=== PATIENT | female | born 1950 | race Caucasian/White ===

== ENCOUNTER 2020-03-18 09:58 | Outpatient (CLI) | payer MEDICARE, SELFPAY ==
[2020-03-18 11:43] LABS: Partial Thromboplastin Time 29.8 SECONDS (22.3-36.8)
[2020-03-18 11:44] LABS: Urine Cotinine NEGATIVE
== END 2020-03-18 09:59 | disposition home or self-care (01) ==
PROVIDERS: PCP Pediatrics; Visit Provider Orthopaedic Surgery
DX: M17.11 Unilateral primary osteoarthritis, right knee (principal); Z01.812 Encounter for preprocedural laboratory examination
CPT/HCPCS: 80307; 83036; 85730; 86850; 86900; 86901; 87081

== ENCOUNTER 2020-03-26 09:34 | Outpatient (CLI) | payer MEDICARE, SELFPAY ==
--- NOTE | 2020-03-26 | EST_ITS ---
Patient Info Name: Laura Elizondo Age: 69 years : 1950 Gender: Female Ht: 63 in Wt: 183 lbs BSA: 1.95 m2 Exam Date: 03/26/2020 12:02 PM Exam Location: [facility] Stress Patient Status: Outpatient Admit Date: 03/26/2020 Staff Ordering Physician: PHYSICIAN NOT ON STAFF, NONSTAFF Attending Provider: PHYSICIAN NOT ON STAFF, NONSTAFF Exercise Technologist: Cassandra Sykes RDCS Exercise Physician: Rogerio Batista DO Exam Type: CA stress garth w NM Study Info Indications R55 - Syncope and collapse Z01.818 - Encounter for other preprocedural examination A regadenoson stress test was performed. Summary 1. 1. Abnormal lexiscan stress test for ischemic ST changes by ECG criteria. 2. 2. Baseline hypertension. 3. 3. Nuclear scan to follow and will be reported separately. Please correlate with it. 4. 4. Patient informed of the above results. Protocol: Lexiscan Stress ECG Details Stage: REST Duration (min): 8 min : 14 sec HR (bpm): 71 SBP (mmHg): 154 DBP (mmHg): 79 Stage: REST Duration (min): 9 min : 59 sec HR (bpm): 72 SBP (mmHg): 154 DBP (mmHg): 79 Stage: STAGE 1 Duration (min): 1 min : 0 sec HR (bpm): 94 SBP (mmHg): 157 DBP (mmHg): 78 Stage: RECOVERY Duration (min): 1 min : 0 sec HR (bpm): 98 SBP (mmHg): 154 DBP (mmHg): 77 Stage: RECOVERY Duration (min): 2 min : 0 sec HR (bpm): 95 SBP (mmHg): 154 DBP (mmHg): 77 Stage: RECOVERY Duration (min): 3 min : 0 sec HR (bpm): 90 SBP (mmHg): 157 DBP (mmHg): 82 Stage: RECOVERY Duration (min): 4 min : 0 sec HR (bpm): 85 SBP (mmHg): 157 DBP (mmHg): 82 Stage: RECOVERY Duration (min): 4 min : 49 sec HR (bpm): 85 SBP (mmHg): 148 DBP (mmHg): 81 Rest HR: 72 bpm Peak HR: 98 bpm Rest Sys BP: 154 mmHg Peak Sys BP: 157 mmHg Max Pred HR: 152 bpm % Max Pred HR: 64 % Target HR: 129 bpm Max RPP: 15,386 bpm*mmHg Termination Reason: Completed protocol Cardiac Symptoms: Lightheaded/pre-syncope Total Time: 1 min : 0 sec Rest Shelby BP: 79 mmHg Peak Shelby BP: 82 mmHg Total Dose: 0.4 mg Resting ECG Sinus rhythm, IRBBB, ST-T wave abnormality 1 mm depression, consider ant/inf ischemia. Stress ECG [address] depression in II, III, avF, V3-V5. Arrhythmias None. Report Signatures
--- NOTE | ~2020-03-26 | NM_ITS ---
EXAMINATION: NM garth stress w perfusion DATE: 03/26/2020 13:32 INDICATION: Syncope. TECHNIQUE: Rest images were obtained following intravenous administration of 8.4 mCi Tc99m tetrofosmi n (Myoview). The patient was infused intravenously with Lexiscan (Regadenoson). Then, 24.6 mCi Tc99m tetrofosmin (Myoview) was administered intravenously, and stress images were obtained in supine posit ion. Additional prone post stress images were obtained. Data was reconstructed into short axis and ho rizontal and vertical long axis SPECT images. Gated SPECT images were also obtained. COMPARISON: None. FINDINGS: There are regions of likely artifactual decreased perfusion on the rest and more prominentl y on the stress images obtained in the supine position but which are without evident on the prone pos t stress images. There is no definite reversible or fixed perfusion abnormality to suggest ischemia o r infarction. There is normal left ventricular chamber size, wall motion and ejection fraction. Lef t ventricular ejection fraction measures >70%. IMPRESSION: 1. Normal myocardial perfusion at rest and during stress. 2. Left ventricular ejection fraction measuring >70%. Reviewed, dictated and finalized at location A.
== END 2020-03-26 09:35 | disposition home or self-care (01) ==
DX: R55 Syncope and collapse (principal); Z01.810 Encounter for preprocedural cardiovascular examination; I10 Essential (primary) hypertension
CPT/HCPCS: 78452; 93017; A9502; J2785

== ENCOUNTER 2020-03-29 00:29 | Outpatient (CLI) | payer MEDICARE, SELFPAY ==
[2020-03-29 16:39] LABS: SARS-CoV-2 RNA PCR Negative
== END 2020-03-29 00:30 | disposition home or self-care (01) ==
LOC: ANHCOVIDDT 00:29
PROVIDERS: Visit Provider Orthopaedic Surgery
DX: Z01.812 Encounter for preprocedural laboratory examination (principal); Z20.828 Contact with and (suspected) exposure to other viral communicable diseases
CPT/HCPCS: 87635; C9803; U0003

== ENCOUNTER 2020-03-31 13:38 | Inpatient (IN) | payer MEDICARE, SELFPAY ==
[2020-03-18 10:21] VITALS: BP 139/72; PULSE 59; RESP 16; TEMP 36.6; O2SAT 99; BMI 32.5
[2020-03-31] VITALS (14 sets, daily range): BP systolic 116–154; BP diastolic 63–84; PULSE 60–72; RESP 12–18; TEMP 36.2–36.9; O2SAT 91–100
--- NOTE | ~2020-03-31 | XR_ITS ---
EXAMINATION: XR knee RT 2V EXAM DATE: 04/02/2020 09:21 INDICATION: Postoperative, total knee arthroplasty. Unable to straighten leg. TECHNIQUE: Portable frontal, crosstable lateral projections right knee obtained immediately followin g arthroplasty. FINDINGS: Patient is status post recent total right knee arthroplasty. The orthopedic hardware is i n expected position. There are pippa overlying the anterior aspect of the knee. Previously seen g as within the knee joint in subcutaneous gas has resolved. There is regional edema, expected postop erative finding. IMPRESSION: Surgical changes from recent arthroplasty. Reviewed, dictated and finalized at location A.
--- NOTE | ~2020-03-31 | XR_ITS ---
EXAMINATION: XR knee RT 2V DATE: 03/31/2020 12:45 CDT INDICATION: Status post right knee arthroplasty TECHNIQUE: 2 views right knee FINDINGS: There is a right total knee arthroplasty in expected position. Subcutaneous gas with fluid and air in the joint and overlying skin pippa are consistent with recent surgery. No evidence of p eriprosthetic fracture. IMPRESSION: 1. Recent right total knee arthroplasty. Reviewed, dictated and finalized at location B.
--- NOTE | 2020-03-31 07:14 | WPDHPUPDATE1 ---
History and Physical Update Update Date/Time: 03/31/20 07:14 History and Physical has been reviewed, including an updated exam of the patient. There are NO changes in the patient's condition. Risks, benefits, and alternatives have been discussed and questions answered. Patient agrees to proceed with procedure.
[2020-03-31] MEDS: LACTATED RINGERS 1,000 ML 30 ML IV CONT ×2 (09:20→12:26)
[2020-03-31 09:24] LABS: Glucose Point of Care 129 (65-105)
[2020-03-31] MEDS: ACETAMINOPHEN 500 MG TABLET 1000 MG PO ×2 (09:40→16:00)
--- NOTE | 2020-03-31 09:47 | WPDANESEPPF ---
Anes - Initial Pre Proc Eval Procedure: Operation Date: 03/31/20 11:00 Proposed Procedures p Right Total Knee Arthroplasty - Ronan Gregory MD Date/Time: 03/31/20 09:47 Surgeon: Ronan Gregory MD Pre Op Diagnosis: Right Knee Osteoarthritis Patient Data Age: 69 Gender: F Height: 1.6 m Weight: 83.5 kg Last Vital Signs Temp 36.6 C 03/18/20 10:21 Pulse 59 L 03/18/20 10:21 Resp 16 03/18/20 10:21 BP 139/72 03/18/20 10:21 Pulse Ox 99 03/18/20 10:21 Allergies Allergy/AdvReac Type Severity Reaction Status Date / Time ioversol Allergy Unknown BLACKED Verified 03/18/20 13:19 OUT amoxicillin [From Augmentin] Allergy Diarrhea Verified 03/18/20 13:19 clavulanic acid Allergy Diarrhea Verified 03/18/20 13:19 [From Augmentin] Home Medications Medication Instructions Recorded Confirmed Type chlorhexidine gluconate 4 % 1 applic TOPICAL ONCE #237 ml 09/22/19 03/31/20 Rx topical liquid amlodipine 5 mg tablet 5 mg PO DAILY 01/14/20 03/31/20 History aspirin 81 mg tablet,delayed 81 mg PO HS 01/14/20 03/31/20 History release cholecalciferol (vitamin D3) 50 50 mcg PO HS 01/14/20 03/31/20 History mcg (2,000 unit) capsule glimepiride 4 mg tablet 4 mg PO QAM #90 tablet 01/14/20 03/31/20 Rx levothyroxine 50 mcg tablet 50 mcg PO DAILY 01/14/20 03/31/20 History losartan 100 mg tablet 100 mg PO DAILY 01/14/20 03/31/20 History meloxicam 15 mg tablet 7.5 mg PO BID 01/14/20 03/31/20 History metoprolol tartrate 100 mg tablet 100 mg PO Q12H 01/14/20 03/31/20 History omega-3 fatty acids-fish oil 360 1 cap PO HS 01/14/20 03/31/20 History mg-1,200 mg capsule oxybutynin chloride 5 mg tablet 5 mg PO DAILY 01/14/20 03/31/20 History pantoprazole 40 mg tablet,delayed 40 mg PO BID 01/14/20 03/31/20 History release rosuvastatin 20 mg tablet 10 mg PO DAILY 01/14/20 03/31/20 History sertraline 100 mg tablet 100 mg PO DAILY 01/14/20 03/31/20 History sitagliptin 50 mg-metformin ER 1 tablet PO BID #180 tablet 01/14/20 03/31/20 Rx 1,000 mg tablet,extended release 24h mp amitriptyline 30 mg PO HS 03/18/20 03/31/20 History cetirizine [Zyrtec] 10 mg PO QAM 03/18/20 03/31/20 History fenofibrate 160 mg PO QAM 03/18/20 03/31/20 History Laboratory Tests 03/31/20 09:21 POC Capillary Glucose 129 mg/dl H mg/dl (65-105) Patient hx anesthesia problems: none Family hx anesthesia problems: none [facility] Past Medical History Medical History (Updated 03/31/20 @ 09:48 by Trever Alcaraz DO) Arthritis Brain bleed Cholecystectomy planned Depression Gastroparesis Hypertension Hypothyroidism Lung nodule Postmenopausal Right knee DJD Thyroid disease Surgical History Surgical History H/O hernia repair History of appendectomy History of knee replacement History of total right knee replacement Social History Social History Smoking status: Never smoker Second hand tobacco smoke exposure: No Additional smoking assessment comments: DENIES ANY FORM OF NICOTINE/TOBACCO USE Alcohol intake: current Alcohol use details: TWO DRINKS PER MONTH WINE Living arrangements: with family Spiritual care concerns: No Anes - Eval Final PreProcedure Day of Procedure 03/31/20 09:47 Patient weight: obese Heart: regular rate and rhythm Lungs: clear to auscultation and normal air movement Airway: Mallampati scale Neurological: alert and oriented Last oral intake: >/= 8 hours ASA classification: III Emergent: no Anesthetic plan: proceed Anesthesia type and monitoring: general ETT and standard monitoring Informed Consent: The patient's anesthetic plan and its attendant risks and benefits were discussed with the patient/family/POA. Questions were solicited and answers provided to the satisfaction of the patient/family/POA.
[2020-03-31] MEDS: CELECOXIB 200 MG CAPSULE PO ×2 (09:51→17:14)
--- NOTE | 2020-03-31 09:52 | WPDANESPNB ---
Anes - Peripheral Nerve Block Date/Time: 03/31/20 09:52 I have discussed with the patient/family/POA the placement of a peripheral nerve block for post-operative pain management, including associated risks, benefits, complications, and side effects. Alternative methods of post-operative analgesia were detailed. Questions were solicited and answers provided to the satisfaction of the patient/family/POA. Time-Out: A pre-procedural Time-Out was completed immediately before starting the procedure and confirmed: Patient Identification, Site, Procedure, Patient Position and the Availability of Requisite Equipment. Clinical Indications: Acute post-operative pain management requested by the operative surgeon. Nerve Block Insertion Note Anes-nerve block: femoral right Patient position: supine Skin prep: chlorhexidine Needle: 22 gauge, stimulating, insulated echogenic needle. Needle length: 80 mm Technique: nerve stimulation lost at (mA) (0.2) and ultrasound Injectate: bupivacaine 0.5% with epi 5 mcg/ml (30cc) Observations: tolerated well Complications: none Procedure start time:: 1028 Procedure end time:: 1030
[2020-03-31] MEDS: TRANEXAMIC ACID 1,000MG/ISO100 1,000 MG/100 ML BAG 200 MG IVPB (10:14)
[2020-03-31] MEDS: ceFAZolin 2 GM/D5W 50 ML 2 GM/50 ML BAG IVPB ×2 (10:35→18:43)
[2020-03-31] MEDS: TRANEXAMIC ACID 1,000 MG/10 ML AMPUL 1000 MG IV PUSH (11:44)
--- NOTE | 2020-03-31 12:35 | PM.PROC ---
Procedure Note - Detailed Date of procedure: 03/31/20 Pre-op diagnosis: Right Knee Osteoarthritis Post-op diagnosis: same Procedure performed: R TKA Description of procedure: THE RIGHT KNEE WAS PREPPED AND DRAPED IN THE STERILE FASHION. A MIDLINE SKIN INCISION WAS MADE. A MEDIAL PARAPATELLAR ARTHROTOMY WAS MADE. THE PATELLA WAS EVERTED. THERE WAS TRICOMPARTMENT DJD. THERE WAS MINIMAL PATELLA DJD. AN INTRAMEDULLARY MIS WAS PLACED IN THE FEMUR. A DISTAL FEMORAL CUT WAS MADE IN 5 DEGREES OF VALGUS REMOVING APPROXIMATELY 9 MM OF BONE FROM THE DISTAL FEMUR. THE FEMUR WAS SIZED TO 60. A 60 FEMORAL CUTTING BLOCK WAS PLACED IN 3 DEGREES OF EXTERNAL ROTATION AND IN ALIGNMENT WITH LAZARO'S LINE AND THE TRANSEPICONDYLAR AXIS. ANTERIOR POSTERIOR AND CHAMFER CUTS WERE MADE. THE CUTS WERE EXCELLENT. NEXT AN INTRAMEDULLARY CUTTING GUIDE WAS PLACED IN THE TIBIA. A TRANS TIBIAL CUT WAS MADE ALONG THE LONG AXIS OF THE TIBIA. APPROXIMATELY 10 MM OF BONE WAS REMOVED FROM THE HIGH SIDE OF THE TIBIA. THE TIBIA WAS THEN PLANED TO A SMOOTH SURFACE. POSTERIOR FEMORAL OSTEOPHYTES WERE REMOVED FROM THE FEMORAL CONDYLES. A 69 TIBIAL TRIAL WAS PLACED IN ALIGNMENT WITH THE 1/3 MEDIAL ASPECT OF THE TIBIAL TUBERCLE. THEN A 60 FEMORAL TRIAL COMPONENT WAS PLACED. BOTH HAD EXCELLENT FITS. EVENTUALLY A 12 MM POLYETHYLENE TRIAL COMPONENT WAS PLACED. THE KNEE WAS TAKEN THROUGH A RANGE OF MOTION. THE KNEE CAME OUT TO FULL EXTENSION. THERE WAS NO ABNORMAL TILT TO THE PATELLA. THERE WAS GOOD A/P AND VARUS/VALGUS STABILITY. THERE WAS NO EXCESSIVE ROLL BACK WITH FLEXION. THE TRIAL COMPONENTS WERE REMOVED. THEN A 60 FEMORAL COMPONENT AND 69 TIBIAL COMPONENT WITH A 12 CR POLYETHYLENE COMPONENT WERE PRESS FIT INTO PLACE. THE IMPLANTS WERE FLUSH WITH THE CUT BONE SURFACES. THE KNEE WAS TAKEN THROUGH A ROM AGAIN AND FOUND TO BE STABLE WITH NO PATELLA TILT NO EXCESSIVE ROLL BACK WITH FLEXION AND GOOD STABILITY WITH COMPLETE AND FULL EXTENSION. THE KNEE WAS IRRIGATED WITH STERILE BETADINE AND WATER FOR ABOUT 3 MINUTES. THE BLEEDERS WERE CAUTERIZED. THE ARTHROTOMY WAS REPAIRED WITH NUMBER 1 VICRYL. THE SUB CUTANEOUS LAYER WITH 2-0 VICRYL AND THE SKIN WITH EVELIN. THE WOUND WAS WASHED AND A STERILE DRESSING WAS APPLIED. PATIENT WAS EXTUBATED. Anesthesia: GETA Surgeon: Ronan Gregory MD Estimated blood loss (mL): 100 Complications: No immediate complications Condition: stable Disposition: PACU
[2020-03-31 12:50] LABS: Glucose Point of Care 156 (65-105)
--- NOTE | 2020-03-31 13:55 | PC.NURSE ---
This patient, Laura Elizondo, was admitted to Medical Room 243-01. Patient/family oriented to hospital policies and general routines including ID bracelet, bed and alarms, visiting hours, pain management, procedures, bathroom and other care routines, personal items, smoking policy, room service/diet, and visiting hours. Valuables list has been completed. Information on how to activate the Rapid Response Team has been discussed. Patient/Family are encouraged to report perceived risks to care and to ask questions if they do not understand what they are told or what they should do.
[2020-03-31] MEDS: SODIUM CHLORIDE 0.9% IV 1,000 ML 125 ML IV CONT (14:22)
[2020-03-31] MEDS: ONDANSETRON INJ 4 MG/2 ML VIAL IV PUSH (16:00)
[2020-03-31 17:04] LABS: Glucose Point of Care 151 (65-105)
[2020-03-31] MEDS: metFORMIN HCL XR 500 MG TAB.SR.24H 1000 MG PO (17:14)
[2020-03-31] MEDS: oxyCODONE/ACETAMINOPHEN (*CRX) 5-325 MG TABLET 1 TABLET PO (18:42)
[2020-03-31] MEDS: FAMOTIDINE 20 MG TABLET PO (20:21)
[2020-03-31] MEDS: AMITRIPTYLINE HCL 10 MG TABLET 30 MG PO (20:22)
[2020-03-31] MEDS: METOPROLOL TARTRATE 50 MG TAB 100 MG PO (20:22)
[2020-03-31] MEDS: PANTOPRAZOLE 40 MG TABLET PO (20:22)
[2020-03-31 22:47] LABS: Glucose Point of Care 148 (65-105)
[2020-03-31] MEDS: diazePAM (*CRX) 5 MG TABLET PO (23:32)
--- NOTE | 2020-03-31 23:38 | PM.IMCN ---
Assessment and Plan Assessment and plan (1) S/P total knee arthroplasty: Code(s): Z96.659 - Presence of unspecified artificial knee joint Status: Acute Assessment and Plan: Continue ortho recommendations. Pain currently well controlled. (2) Diabetes mellitus: Code(s): E11.9 - Type 2 diabetes mellitus without complications Status: Chronic Assessment and Plan: Accuchecks, SSI Coverage, Hypoglycemic protocol. Resume home oral hypoglycemic agents. (3) Hypothyroidism: Code(s): E03.9 - Hypothyroidism, unspecified Status: Chronic Assessment and Plan: Continue levothyroxine. (4) Hypertension: Code(s): I10 - Essential (primary) hypertension Status: Chronic Assessment and Plan: stable. Monitor blood pressure. Continue amlodipine PO. (5) Hyperlipidemia: Code(s): E78.5 - Hyperlipidemia, unspecified Status: Chronic Additional Plan Date of service was 03/31/2020 at 23:00 hrs. HPI Data of Consult Consult date: 04/01/20 Requesting Physician: Ronan Gregory MD Primary Care Provider: UNKNOWN,DOCTOR Consult Narrative Narrative: Thank you for consulting us to see this 69 year old diabetic female with known HTN and hyperlipidemia who is s/p right TKA secondary to severe osteoarthritis. The patient currently states her knee pain is controlled but she is experiencing some anterior dunn pain of her right leg. She denies any fevers, chills, cough, shortness of breath, chest pain, abdominal pain, nausea, vomiting, diarrhea or focal neurological symptoms. No other complaints. Review of Systems Review of Systems: All systems reviewed & are unremarkable except as noted in HPI and below PMFSH Past Medical History Medical History Arthritis Brain bleed Cholecystectomy planned Depression Gastroparesis Hypertension Hypothyroidism Lung nodule Postmenopausal Right knee DJD Thyroid disease Surgical History Surgical History H/O hernia repair History of appendectomy History of knee replacement History of total right knee replacement Family History Family History Other Cerebrovascular accident Diabetes mellitus Family history of alcoholism Family history of congestive heart failure Hypertension Social History Social History Smoking status: Never smoker Second hand tobacco smoke exposure: No Additional smoking assessment comments: DENIES ANY FORM OF NICOTINE/TOBACCO USE Alcohol intake: never Alcohol use details: TWO DRINKS PER MONTH WINE Substance use: never Substance use type: does not use Living arrangements: with family Gender identity (if verbalized by the patient): Female Sexual Orientation (if Verbalized by the Patient): Straight or Heterosexual Spiritual care concerns: No Meds Home Medications and Allergies Home Medications Medication Instructions Recorded Confirmed Type chlorhexidine gluconate 4 % 1 applic TOPICAL ONCE #237 ml 09/22/19 03/31/20 Rx topical liquid amlodipine 5 mg tablet 5 mg PO DAILY 01/14/20 03/31/20 History aspirin 81 mg tablet,delayed 81 mg PO HS 01/14/20 03/31/20 History release cholecalciferol (vitamin D3) 50 50 mcg PO HS 01/14/20 03/31/20 History mcg (2,000 unit) capsule glimepiride 4 mg tablet 4 mg PO QAM #90 tablet 01/14/20 03/31/20 Rx levothyroxine 50 mcg tablet 50 mcg PO DAILY 01/14/20 03/31/20 History losartan 100 mg tablet 100 mg PO DAILY 01/14/20 03/31/20 History meloxicam 15 mg tablet 7.5 mg PO BID 01/14/20 03/31/20 History metoprolol tartrate 100 mg tablet 100 mg PO Q12H 01/14/20 03/31/20 History omega-3 fatty acids-fish oil 360 1 cap PO HS 01/14/20 03/31/20 History mg-1,200 mg capsule oxybutynin chloride 5 mg tablet 5 mg PO SARATH
[2020-04-01] VITALS (7 sets, daily range): BP systolic 104–150; BP diastolic 50–73; PULSE 60–80; RESP 17–20; TEMP 36.5–36.9; O2SAT 94–100
[2020-04-01] MEDS: ceFAZolin 2 GM/D5W 50 ML 2 GM/50 ML BAG IVPB ×2 (02:19→10:09)
[2020-04-01] MEDS: oxyCODONE/ACETAMINOPHEN (*CRX) 5-325 MG TABLET 1 TABLET PO ×5 (03:08→23:53)
[2020-04-01 05:53] LABS: Basophils Absolute Auto 0.1 K/mm3 (0.0-0.1); Basophils Percent Auto 0.4 % (0.2-1.2); Eosinophils Percent Auto 0.1 % (0-4.4); Hematocrit 33.8 % (37.0-47.0); Hemoglobin 11.1 g/dL (12.0-15.0); Immature Granulocyte Absolute 0.08 K/mm3 (0.00-0.031); Immature Granulocyte Percent A 0.5 % (0-0.5); Lymphocytes Absolute Auto 2.69 K/mm3 (0.9-3.2); Lymphocytes Percent Auto 16.7 % (18.3-44.2); Mean Corpuscular HGB Conc 32.8 g/dl (32-36); Mean Corpuscular Hemoglobin 28.6 pg (26-34); Mean Corpuscular Volume 87.1 fl (80-100); Mean Platelet Volume 10.9 fl (7.4-10.4); Monocytes Percent Auto 6.3 % (2.6-8.5); Neutrophils Absolute Auto 12.3 K/mm3 (1.3-6.7); Platelet Count Result 242 k/mm3 (150-375); Red Blood Count 3.88 M/mm3 (4.2-5.4); Red Cell Distribution Width 13.5 % (11.5-14.5); White Blood Count 16.1 K/mm3 (4.5-10.0)
[2020-04-01 05:57] LABS: Potassium 3.6 mmol/L (3.4-5.0)
[2020-04-01 05:59] LABS: Anion Gap 8 mmol/L (8-16); Blood Urea Nitrogen 14 mg/dL (7-17); Calcium 8.3 mg/dL (8.4-10.2); Carbon Dioxide 26 mmol/L (22-30); Chloride 99 mmol/L (98-107); Estimated CRCL calculation 59 ml/min; Estimated Glomerular Filt Rate > 60; Glucose 141 mg/dL (65-105); Sodium 133 mmol/L (137-145)
[2020-04-01] MEDS: LEVOTHYROXINE SODIUM 50 MCG TABLET PO (06:36)
[2020-04-01] MEDS: ACETAMINOPHEN 500 MG TABLET 1000 MG PO (06:43)
[2020-04-01 07:58] LABS: Glucose Point of Care 126 (65-105)
[2020-04-01] MEDS: OXYBUTYNIN CHLORIDE 5 MG TABLET PO (08:02)
[2020-04-01] MEDS: ROSUVASTATIN 10 MG TABLET PO (08:02)
[2020-04-01] MEDS: PANTOPRAZOLE 40 MG TABLET PO ×2 (08:02→20:19)
[2020-04-01] MEDS: metFORMIN HCL XR 500 MG TAB.SR.24H 1000 MG PO ×2 (08:02→17:26)
[2020-04-01] MEDS: ASPIRIN 325 MG ENTERIC TABLET 650 MG PO (08:02)
[2020-04-01] MEDS: FAMOTIDINE 20 MG TABLET PO ×2 (08:02→20:18)
[2020-04-01] MEDS: LOSARTAN POTASSIUM 100 MG TABLET PO (08:02)
[2020-04-01] MEDS: GLIMEPIRIDE 2 MG TABLET 4 MG PO (08:02)
[2020-04-01] MEDS: CELECOXIB 200 MG CAPSULE PO ×2 (08:03→17:27)
[2020-04-01] MEDS: SERTRALINE HCL 50 MG TABLET 100 MG PO (08:03)
[2020-04-01] MEDS: METOPROLOL TARTRATE 50 MG TAB 100 MG PO ×2 (08:03→20:18)
[2020-04-01] MEDS: FENOFIBRATE 160 MG TABLET PO (08:03)
[2020-04-01] MEDS: DOCUSATE SODIUM 100 MG CAPSULE PO ×2 (08:03→17:27)
[2020-04-01] MEDS: amLODIPine BESYLATE 5 MG TABLET PO (08:03)
--- NOTE | 2020-04-01 08:57 | PM.PNORT ---
Progress Note: A&P Assessment and Plan (1) S/P total knee arthroplasty: Qualifiers: Laterality: right Qualified Code(s): Z96.651 - Presence of right artificial knee joint Code(s): Z96.659 - Presence of unspecified artificial knee joint Status: Acute Assessment and Plan: POD #1: RIGHT TKA Continue PT/OT. WBAT. Walker. HIGH FALL RISK. Continue Pain Control. Ice Knee. Protect skin. Continue DVT prophylaxis. Reviewed incentive spirometry use. SCDs. Dressing changed today. Incision well-approximated. Monitor dressing for drainge. Dispo: Home with home health pending progress with PT/OT. Subjective Subjective Date/Time Seen: 04/01/20 08:57 POD#1: RIGHT TKA Feeling well. Pain well controlled. C/o feelings of a stiff leg . Tolerating diet well. Awaiting PT/OT this AM. Review of Systems Review of Systems: All systems reviewed & are unremarkable except as noted in HPI and below Constitutional: Constitutional: Denies fever(s) and Denies headache(s) ENT: Denies headache(s) Cardiovascular: Cardiovascular: Denies chest pain, Denies diaphoresis, Denies palpitations and Denies dyspnea Respiratory: Respiratory: Denies dyspnea Gastrointestinal: Gastrointestinal: Denies abdominal pain, Denies constipation, Denies nausea and Denies vomiting Genitourinary: Genitourinary: Reports nocturia and Denies dysuria Musculoskeletal: Musculoskeletal: Reports arthralgias (Right Knee ) and Reports joint swelling (Right Knee ) Neurologic: Denies headache(s) Endocrine: Endocrine: Denies palpitations Exam Const: General: comfortable and no acute distress Resp: Effort & Inspection: normal respiratory effort Cardio: Rate: regular rate Rhythm: regular rhythm GI: Inspection: non-distended GI Palp: Yes Soft to palpation, No Tenderness to palpation present (GI) and No Guarding due to palpation present (GI) Skin: Wounds: wounds noted Other: Incision c/d/i. No surrounding redness/warmth. No hematoma. Mild ecchymosis. No wound dehiscence. Neuro: General: gait normal (antalgic RLE ) Cognition (Neuro): normal cognition Motor exam (neuro): Abnormal motor strength present (limitations with extension of the RLE. ) Sensory Exam: normal sensation Other: NV intact aside from femoral nerve block. Weakness with extension at this time. Extrem: Right upper extremity: normal to inspection, full ROM and normal capillary refill Left upper extremity: normal to inspection, full ROM and normal capillary refill Right lower extremity: normal to inspection, full ROM (ROM limited due to recent surgical intervention ), knee Details: tenderness (diffuse, mild ), swelling (diffuse, mild ) and abnormal ROM Details: unable to extend lower leg actively (minimal extension of lower leg at this time. ), lower leg (Negative Ej's Sign ) Details: normal to inspection; no tenderness, ankle (+ankle dorsiflexion/plantarflexion. ) Details: normal to inspection and foot (2+ pedal pulses. ) Details: normal capillary refill; no tenderness Left lower extremity: normal to inspection Psych: Mental Status: mental status grossly normal Objective Data Vital Signs Vital Signs: Vital Signs - 24 hr 03/31/20 09:43 03/31/20 12:26 03/31/20 12:40 Temperature 36.7 C 36.4 C Pulse Rate 66 72 71 Respiratory Rate 12 14 Blood Pressure 152/69 H 116/68 136/76 Pulse Oximetry 100 95 97 03/31/20 12:55 03/31/20 13:10 03/31/20 13:25 Temperature Pulse Rate 70 69 68 Respiratory Rate 16 16 18 Blood Pressure 140/73 151/73 H 151/71 H Pulse Oximetry 96 95 94 03/31/20 13:35 03/31/20 14:00 03/31/20 14:15 Temperature 36.8 C 36.8 C Pulse Rate 68 64 64 Respiratory Rate 12 18 17 Blood Pressure 154/71 H 150/71 H 150/64 H Pulse Oximetry 98 94 95 03/31/20 14:45 03/31/20 15:45 03/31/20 18:00 Temperature 36.9 C 36.6 C 36.9 C Pulse Rate 64 65 66 Respiratory Rate 17 17 18 Blood Pressure 133/84 150/70 H 151/71 H Pulse Oximetry 99 92 91 09
--- NOTE | 2020-04-01 10:57 | PCOTNOTE ---
On 04/01/20, the student, Sangita Singh, provided care and completed [facility] documentation on this patient. I have reviewed the student's documentation and agree with the findings.
--- NOTE | 2020-04-01 11:04 | P.PNAN_ITS ---
Anes - Prog Note Post-Op Date/Time: 04/01/20 11:04 Cardiovascular status: normal Respiratory status: normal Airway patency: baseline Mental status: baseline Post-Op hydration status: normal Vital Signs: Last Vital Signs Temp 36.7 C 04/01/20 10:00 Pulse 60 04/01/20 10:00 Resp 17 04/01/20 10:00 BP 104/52 L 04/01/20 10:00 Pulse Ox 95 04/01/20 10:00 Pain Score (VAS): 3 I/O: Intake & Output 03/31/20 04/01/20 04/01/20 23:59 07:59 15:59 Intake Total 1165 550 590 Output Total 450 600 Balance 715 -50 590 Laboratory Tests 04/01/20 05:12 04/01/20 05:12 03/31/20 03/31/20 03/31/20 12:48 16:50 20:32 WBC RBC Hgb Hct MCV MCH MCHC RDW Plt Count MPV Immature Gran % (Auto) Neut % (Auto) Lymph % (Auto) Pickett % (Auto) Eos % (Auto) Baso % (Auto) Lymph # (Auto) Pickett # (Auto) Eos # (Auto) Baso # (Auto) Abs Immat Gran (auto) Absolute Neuts (auto) Absolute Nucleated RBC Nucleated RBC % Sodium Potassium Chloride Carbon Dioxide Anion Gap BUN Creatinine Estim Creat Clear Calc Estimated GFR Glucose POC Capillary Glucose 156 H 151 H 148 H Calcium 04/01/20 04/01/20 04/01/20 05:12 05:12 07:46 WBC 16.1 H RBC 3.88 L Hgb 11.1 L Hct 33.8 L MCV 87.1 MCH 28.6 MCHC 32.8 RDW 13.5 Plt Count 242 MPV 10.9 H Immature Gran % (Auto) 0.5 Neut % (Auto) 76.0 H Lymph % (Auto) 16.7 L Pickett % (Auto) 6.3 Eos % (Auto) 0.1 Baso % (Auto) 0.4 Lymph # (Auto) 2.69 Pickett # (Auto) 1.0 H Eos # (Auto) 0.0 Baso # (Auto) 0.1 Abs Immat Gran (auto) 0.08 H Absolute Neuts (auto) 12.3 H Absolute Nucleated RBC 0.0 Nucleated RBC % 0.0 Sodium 133 L Potassium 3.6 Chloride 99 Carbon Dioxide 26 Anion Gap 8 BUN 14 Creatinine 0.80 Estim Creat Clear Calc 59 Estimated GFR > 60 Glucose 141 H POC Capillary Glucose 126 H Calcium 8.3 L Post-procedural complaints: none Patient Feedback: Patient satisfied with anesthetic care.
[2020-04-01 11:27] LABS: Glucose Point of Care 136 (65-105)
--- NOTE | 2020-04-01 11:40 | PM.IMPN ---
Progress Note: A&P Assessment and Plan (1) S/P total knee arthroplasty: Qualifiers: Laterality: right Qualified Code(s): Z96.651 - Presence of right artificial knee joint Code(s): Z96.659 - Presence of unspecified artificial knee joint Status: Acute Assessment and Plan: ----- patient did well with physical therapy and is going to work with them later today. She only has a few steps into her house and she lives with her who can help her. Continue ortho recommendations. Okay to discharge from medical standpoint (2) Diabetes mellitus: Code(s): E11.9 - Type 2 diabetes mellitus without complications Status: Chronic Assessment and Plan: ----- last glucose 136. Continue Amaryl, metformin and sliding-scale insulin as needed (3) Hypothyroidism: Code(s): E03.9 - Hypothyroidism, unspecified Status: Chronic Assessment and Plan: -----Continue levothyroxine. (4) Hypertension: Code(s): I10 - Essential (primary) hypertension Status: Chronic Assessment and Plan: ----- last blood pressure .stable , no lightheadedness or dizziness. Monitor blood pressure. Continue amlodipine PO. (5) Hyperlipidemia: Code(s): E78.5 - Hyperlipidemia, unspecified Status: Chronic Assessment and Plan: ----- continue Crestor Additional Plan Time Spent With Patient Time with patient: 25 - 35 minutes Subjective Date/time seen: 04/01/20 11:40 Interval history: Pt is a 69-year-old female here for right elective knee arthroplasty. Patient was seen today and states she has been having significant pain throughout the night and after physical therapy but is overall doing okay. She has no numbness or tingling to the area. She has been up and walking to the bathroom. No complaints other than pain. Pt denies nausea, vomiting, fevers, chills, constipation, diarrhea, chest pain, sob, or abdominal pain. Review of Systems Review of Systems: All systems reviewed & are unremarkable except as noted in HPI and below Exam Narrative: Exam Narrative: General: Well developed well nourished patient in NAD HEENT: normocephalic Neck: supple Neuro: Alert and oriented x4 CV:RRR Resp:CTA Abd: Soft, non distended. No pain to palpation. Positive bowel sounds Extremities: Right leg with mild swelling in no significant erythema, discharge, or bleeding. Pulses intact. Left leg within normal limits Objective Data Vital Signs Vital Signs: Vital Signs - 24 hr 03/31/20 12:26 03/31/20 12:40 03/31/20 12:55 Temperature 97.6 F Pulse Rate 72 71 70 Respiratory Rate 12 14 16 Blood Pressure 116/68 136/76 140/73 Pulse Oximetry 95 97 96 03/31/20 13:10 03/31/20 13:25 03/31/20 13:35 Temperature Pulse Rate 69 68 68 Respiratory Rate 16 18 12 Blood Pressure 151/73 H 151/71 H 154/71 H Pulse Oximetry 95 94 98 03/31/20 14:00 03/31/20 14:15 03/31/20 14:45 Temperature 98.2 F 98.3 F 98.4 F Pulse Rate 64 64 64 Respiratory Rate 18 17 17 Blood Pressure 150/71 H 150/64 H 133/84 Pulse Oximetry 94 95 99 03/31/20 15:45 03/31/20 18:00 03/31/20 20:00 Temperature 97.8 F 98.5 F 97.2 F L Pulse Rate 65 66 63 Respiratory Rate 17 18 18 Blood Pressure 150/70 H 151/71 H 131/63 Pulse Oximetry 92 91 100 03/31/20 20:22 04/01/20 00:00 04/01/20 04:00 Temperature 97.7 F 97.7 F Pulse Rate 60 69 63 Respiratory Rate 18 18 Blood Pressure 117/56 L 127/73 Pulse Oximetry 94 98 04/01/20 08:03 04/01/20 10:00 Temperature 98.1 F Pulse Rate 63 60 Respiratory Rate 17 Blood Pressure 104/52 L Pulse Oximetry 95 Intake/Output Intake/Output: Intake & Output 03/29/20 03/30/20 03/31/20 04/01/20 23:59 23:59 23:59 23:59 Intake Total 1615 1190 Output Total 700 600 Balance 915 590 Meds/Results Medications: Active Medications Generic Name Dose Route Start Last Admin Trade Name Freq PRN Reason Stop Dose Ad
[2020-04-01 16:59] LABS: Glucose Point of Care 105 (65-105)
[2020-04-01] MEDS: AMITRIPTYLINE HCL 10 MG TABLET 30 MG PO (20:18)
[2020-04-01 22:06] LABS: Glucose Point of Care 100 (65-105)
[2020-04-02 04:00] VITALS: BP 107/61; PULSE 85; RESP 18; TEMP 36.7; O2SAT 96
[2020-04-02] MEDS: oxyCODONE/ACETAMINOPHEN (*CRX) 5-325 MG TABLET 1 TABLET PO (05:28)
[2020-04-02] MEDS: LEVOTHYROXINE SODIUM 50 MCG TABLET PO (05:29)
[2020-04-02] MEDS: amLODIPine BESYLATE 5 MG TABLET PO (08:43)
[2020-04-02] MEDS: metFORMIN HCL XR 500 MG TAB.SR.24H 1000 MG PO ×2 (08:43→16:29)
[2020-04-02 08:47] VITALS: PULSE 85
[2020-04-02] MEDS: GLIMEPIRIDE 2 MG TABLET 4 MG PO (08:47)
[2020-04-02] MEDS: ROSUVASTATIN 10 MG TABLET PO (08:47)
[2020-04-02] MEDS: DOCUSATE SODIUM 100 MG CAPSULE PO ×2 (08:47→16:29)
[2020-04-02] MEDS: METOPROLOL TARTRATE 50 MG TAB 100 MG PO (08:47)
[2020-04-02] MEDS: FENOFIBRATE 160 MG TABLET PO (08:47)
[2020-04-02] MEDS: FAMOTIDINE 20 MG TABLET PO (08:47)
[2020-04-02] MEDS: PANTOPRAZOLE 40 MG TABLET PO (08:47)
[2020-04-02] MEDS: LOSARTAN POTASSIUM 100 MG TABLET PO (08:47)
[2020-04-02] MEDS: SERTRALINE HCL 50 MG TABLET 100 MG PO (08:48)
[2020-04-02] MEDS: CELECOXIB 200 MG CAPSULE PO ×2 (08:48→16:29)
[2020-04-02] MEDS: ASPIRIN 325 MG ENTERIC TABLET 650 MG PO (08:48)
[2020-04-02] MEDS: OXYBUTYNIN CHLORIDE 5 MG TABLET PO (08:48)
--- NOTE | 2020-04-02 09:08 | PM.PNORT ---
Progress Note: A&P Assessment and Plan (1) S/P total knee arthroplasty: Qualifiers: Laterality: right Qualified Code(s): Z96.651 - Presence of right artificial knee joint Code(s): Z96.659 - Presence of unspecified artificial knee joint Status: Acute Assessment and Plan: POD #2: RIGHT TKA Continue PT/OT. WBAT. Walker. HIGH FALL RISK. Weakness with extension of the knee, block likely not yet worn off. Will obtain 2V radiographs of the right knee and order knee immobilizer for the interim to prevent fall. Continue Pain Control. Ice Knee. Protect skin. Continue DVT prophylaxis. Reviewed incentive spirometry use. SCDs. Dressing changed today. Incision well-approximated. Monitor dressing for drainge. Dispo: Home with home health pending new radiographs/progress with PT/OT and improvement in extension Subjective Subjective Date/Time Seen: 04/02/20 09:08 Review of Systems Review of Systems: All systems reviewed & are unremarkable except as noted in HPI and below Constitutional: Constitutional: Denies fever(s) and Denies headache(s) ENT: Denies headache(s) Cardiovascular: Cardiovascular: Denies chest pain, Denies diaphoresis, Denies palpitations and Denies dyspnea Respiratory: Respiratory: Denies dyspnea Gastrointestinal: Gastrointestinal: Denies abdominal pain, Denies constipation, Denies nausea and Denies vomiting Genitourinary: Genitourinary: Reports nocturia and Denies dysuria Musculoskeletal: Musculoskeletal: Reports arthralgias (Right Knee ) and Reports joint swelling (Right Knee ) Neurologic: Denies headache(s) Endocrine: Endocrine: Denies palpitations Exam Const: General: comfortable and no acute distress Resp: Effort & Inspection: normal respiratory effort Cardio: Rate: regular rate Rhythm: regular rhythm GI: Inspection: non-distended GI Palp: Yes Soft to palpation, No Tenderness to palpation present (GI) and No Guarding due to palpation present (GI) Skin: Wounds: wounds noted Other: Dressing with serousanguinous drainage. Dressing changed. No surrounding redness/warmth. No hematoma. Mild ecchymosis. No wound dehiscence. Neuro: General: gait normal (antalgic RLE ) Cognition (Neuro): normal cognition Motor exam (neuro): Abnormal motor strength present (limitations with extension of the RLE. ) Sensory Exam: normal sensation Other: NV intact aside from femoral nerve block. Continued weakness of extensor mechinism. Extrem: Right upper extremity: normal to inspection, full ROM and normal capillary refill Left upper extremity: normal to inspection, full ROM and normal capillary refill Right lower extremity: normal to inspection, full ROM (ROM limited due to recent surgical intervention ), knee Details: tenderness (diffuse, mild ), swelling (diffuse, mild ) and abnormal ROM Details: unable to extend lower leg actively (minimal extension of lower leg at this time. ), lower leg (Negative Ej's Sign ) Details: normal to inspection; no tenderness, ankle (+ankle dorsiflexion/plantarflexion. ) Details: normal to inspection and foot (2+ pedal pulses. ) Details: normal capillary refill; no tenderness Left lower extremity: normal to inspection Psych: Mental Status: mental status grossly normal Objective Data Vital Signs Vital Signs: Vital Signs - 24 hr 04/01/20 10:00 04/01/20 14:00 04/01/20 20:18 Temperature 36.7 C 36.9 C Pulse Rate 60 64 80 Respiratory Rate 17 18 Blood Pressure 104/52 L 118/50 L Pulse Oximetry 95 100 04/01/20 20:59 04/02/20 04:00 04/02/20 08:47 Temperature 36.5 C 36.7 C Pulse Rate 66 85 85 Respiratory Rate 20 18 Blood Pressure 150/51 H 107/61 Pulse Oximetry 96 96 Intake/Output Intake/Output: Intake & Output 03/30/20 03/31/20 04/01/20 04/02/20 23:59 23:59 23:59 23:59 Intake Total 1610 0060 Output Total 700 364 Balance 915 1120 Meds/Results Medications: Active Medications Generic Name Dose Route Start Last
[2020-04-02 10:46] VITALS: O2SAT 96
--- NOTE | 2020-04-02 11:37 | PM.IMPN ---
Progress Note: A&P Assessment and Plan (1) S/P total knee arthroplasty: Qualifiers: Laterality: right Qualified Code(s): Z96.651 - Presence of right artificial knee joint Code(s): Z96.659 - Presence of unspecified artificial knee joint Status: Acute Assessment and Plan: ----- Pt is having significant pain and problems bending her knee due to pain. She says she is going to try a knee brace. She is going to work with PT later today and she how she does. Dispo per ortho. She only has a few steps into her house and she lives with her who can help her. Continue ortho recommendations. Okay to discharge from medical standpoint (2) Diabetes mellitus: Code(s): E11.9 - Type 2 diabetes mellitus without complications Status: Chronic Assessment and Plan: ----- last glucose 113. Continue Amaryl, metformin and sliding-scale insulin as needed (3) Hypothyroidism: Code(s): E03.9 - Hypothyroidism, unspecified Status: Chronic Assessment and Plan: -----Continue levothyroxine. (4) Hypertension: Code(s): I10 - Essential (primary) hypertension Status: Chronic Assessment and Plan: ----- last blood pressure 107/61.stable , no lightheadedness or dizziness. Monitor blood pressure. Continue amlodipine PO. (5) Hyperlipidemia: Code(s): E78.5 - Hyperlipidemia, unspecified Status: Chronic Assessment and Plan: ----- continue Crestor Additional Plan Subjective Date/time seen: 04/02/20 11:37 Interval history: Pt is a 69-year-old female here for right elective knee arthroplasty. Patient was seen today and states she has been having significant pain while at rest and with PT. It hurts so bad she cannot lift the leg off the bed or bend it very well. She denies numbness or tingling. No complaints other than pain. Pt denies nausea, vomiting, fevers, chills, constipation, diarrhea, chest pain, sob, or abdominal pain. Exam Narrative: Exam Narrative: General: Well developed well nourished patient in NAD HEENT: normocephalic Neck: supple Neuro: Alert and oriented x4 CV:RRR Resp:CTA Abd: Soft, non distended. No pain to palpation. Positive bowel sounds Extremities: Right leg with mild swelling in no significant erythema, discharge, or bleeding. she was unable to lift it off the bed or bend it. Pulses intact. Left leg within normal limits Objective Data Vital Signs Vital Signs: Vital Signs - 24 hr 04/01/20 14:00 04/01/20 20:18 04/01/20 20:59 Temperature 98.5 F 97.7 F Pulse Rate 64 80 66 Respiratory Rate 18 20 Blood Pressure 118/50 L 150/51 H Pulse Oximetry 100 96 04/02/20 04:00 04/02/20 08:47 04/02/20 10:46 Temperature 98.1 F Pulse Rate 85 85 Respiratory Rate 18 Blood Pressure 107/61 Pulse Oximetry 96 96 Intake/Output Intake/Output: Intake & Output 03/30/20 03/31/20 04/01/20 04/02/20 23:59 23:59 23:59 23:59 Intake Total 1615 1870 240 Output Total 700 750 Balance 915 1120 240 Meds/Results Medications: Active Medications Generic Name Dose Route Start Last Admin Trade Name Freq PRN Reason Stop Dose Admin Acetaminophen 1,000 mg 03/31/20 13:38 04/01/20 06:43 Tylenol Tablet PO 1,000 mg Q6H PRN Administration Mild Pain (1-3) Amitriptyline HCl 30 mg 03/31/20 21:00 04/01/20 20:18 Elavil PO 30 mg HS KAELA Administration Amlodipine Besylate 5 mg 04/01/20 09:00 04/02/20 08:43 Norvasc PO 5 mg DAILY KAELA Administration Aspirin 650 mg 04/01/20 09:00 04/02/20 08:48 Aspirin Ec PO 650 mg DAILY KAELA Administration Celecoxib 200 mg 03/31/20 17:00 04/02/20 08:48 Celebrex PO 200 mg BIDWM KAELA Administration Dextrose 12.5 gm 03/31/20 23:42 Dextrose 50% Syringe IV PUSH PRN PRN Hypoglycemia Protocol Diazepam 5 mg 03/31/20 13:38 03/31/20 23:32 Valium Po PO 5 mg Q8H PRN Admin
[2020-04-02 11:41] LABS: Glucose Point of Care 113 (65-105)
[2020-04-02] MEDS: ACETAMINOPHEN 500 MG TABLET 1000 MG PO (13:42)
[2020-04-02 14:00] VITALS: BP 127/64; PULSE 68; RESP 18; TEMP 36.7; O2SAT 95
[2020-04-02 14:15] LABS: Glucose Point of Care 145 (65-105)
--- NOTE | 2020-04-02 15:15 | PCPTNOTE ---
Call placed to Dr. Gregory's office in A.M. and P.M. to report patient's progress and limitations due to R Quad weakness. Detailed message left both times with office staff. Report also given to patient's RN. Patient is not able to perform active SLR or SAQ. Assist is needed for ambulation due to weakness and potential buckling of (R) knee. R Knee immobilizer was used for gait and stair climbing and provided support to prevent buckling.
--- NOTE | 2020-04-02 16:05 | PM.DS ---
DS: Admitting Diagnosis Admitting Diagnosis Admitting Diagnosis: Right Knee Osteoarthritis DS: Discharge Diagnosis Discharge Diagnosis (1) S/P total knee arthroplasty: Qualifiers: Laterality: right Qualified Code(s): Z96.651 - Presence of right artificial knee joint Code(s): Z96.659 - Presence of unspecified artificial knee joint Status: Acute Assessment and Plan: POD #2: RIGHT TKA Continue PT/OT. WBAT. Walker. HIGH FALL RISK. Weakness with extension of the knee, block likely not yet worn off. Will obtain 2V radiographs of the right knee and order knee immobilizer for the interim to prevent fall. Continue Pain Control. Ice Knee. Protect skin. Continue DVT prophylaxis. Reviewed incentive spirometry use. SCDs. Dressing changed today. Incision well-approximated. Monitor dressing for drainge. Dispo: Home with home health pending new radiographs/progress with PT/OT and improvement in extension DS: Summary Hospital Course Reason for hospitalization: RIGHT TOTAL KNEE REPLACEMENT Hospital Course: 69-year-old female with a right total knee replacement was admitted status post surgical intervention for postoperative medical management, formal physical therapy and pain management. The patient did have a femoral nerve block prior to surgical intervention and continues to have weakness with extension of the right lower extremity. Repeat radiographs were obtained today which revealed no changes from immediate postoperative radiographs. No evidence of patella tendon issues at this time. Weakness likely related to block. We have ordered a knee immobilizer for the patient at this time. The patient will utilize the knee immobilizer when ambulating out of bed and when performing stairs at home. She will follow up in our office on Sunday for reassessment. The dressing was changed today. She will be sent home with 1 additional dressing for dressing to be changed by the home health nurse in approximately 5 days. Her pippa will be removed in 14 days. She was cleared from medical standpoint for discharge. Discharge plan reviewed with attending physician Dr. June who is covering for Dr. Gregory. Agrees with discharge with knee immobilizer and walker. also agreeable to discharge. Status at Discharge Cognitive/behavioral status at discharge: Stable Overall status at discharge: patient is progressing back to baseline Time Spent with Patient Time attestation: Total time spent providing and/or coordinating discharge services: Exam Const: General: comfortable and no acute distress Resp: Effort & Inspection: normal respiratory effort Cardio: Rate: regular rate Rhythm: regular rhythm GI: Inspection: non-distended GI Palp: Yes Soft to palpation, No Tenderness to palpation present (GI) and No Guarding due to palpation present (GI) Skin: Wounds: wounds noted Other: Dressing with serousanguinous drainage. Dressing changed. No surrounding redness/warmth. No hematoma. Mild ecchymosis. No wound dehiscence. Neuro: General: gait normal (antalgic RLE ) Cognition (Neuro): normal cognition Motor exam (neuro): Abnormal motor strength present (limitations with extension of the RLE. ) Sensory Exam: normal sensation Other: NV intact aside from femoral nerve block. Continued weakness of extensor mechinism. Extrem: Right upper extremity: normal to inspection, full ROM and normal capillary refill Left upper extremity: normal to inspection, full ROM and normal capillary refill Right lower extremity: normal to inspection, full ROM (ROM limited due to recent surgical intervention ), knee, lower leg (Negative Ej's Sign ), ankle (+ankle dorsiflexion/plantarflexion. ) and foot (2+ pedal pulses. ) Left lower extremity: normal to inspection Psych: Mental Status: mental status grossly normal DS: Data Data Completed and Pending Labs on day of discharge: Labs from last 24 hours 04/02/20 04/02/20 04/01/20
[2020-04-02 16:40] LABS: Glucose Point of Care 113 (65-105)
== END 2020-04-02 17:25 | disposition home health service (06) | DRG 470 ==
LOC: ANH2MED 13:46
PROVIDERS: Admitting Provider Orthopaedic Surgery; Visit Provider Orthopaedic Surgery
PROC: 0SRC0JA Replacement of Right Knee Joint with Synthetic Substitute, Uncemented, Open Approach (ICD-10-PCS; CPT 27447; principal; 2020-03-31 11:00)
DX: M17.11 Unilateral primary osteoarthritis, right knee (principal); G89.18 Other acute postprocedural pain; I10 Essential (primary) hypertension; E03.9 Hypothyroidism, unspecified; E11.43 Type 2 diabetes mellitus with diabetic autonomic (poly)neuropathy; K31.84 Gastroparesis; Z96.652 Presence of left artificial knee joint; E78.5 Hyperlipidemia, unspecified; Z79.82 Long term (current) use of aspirin; Z79.84 Long term (current) use of oral hypoglycemic drugs; Z79.899 Other long term (current) drug therapy
CPT/HCPCS: 36415; 73560; 80048; 85025; 87635; 97110; 97116; 97161; 97165; 97535; A9270; C1713; C1776; C9803; J0171; J0330; J0690; J1100; J2250; J2270; J2370; J2405; J2704; J2795; J3010; J7030; J7120; L1830; U0003

== ENCOUNTER 2020-05-19 14:30 | Outpatient (RCR) | payer MEDICARE, SELFPAY ==
--- NOTE | 2020-04-23 16:24 | PTOPEVAL ---
INITIAL PHYSICAL THERAPY EVALUATION and PLAN OF CARE Thank you for referring Laura Elizondo to [facility].? Laura is scheduled to be seen for physical therapy? 2x/week for 4 weeks. Please review, sign, date and return this plan of care SIXTO. I agree with and certify that the following plan of care is medically necessary. Referring Physician Date Admitting Provider: Attending Provider: Ronan Gregory MD Referring Provider: *PT Outpatient Evaluation Start: 04/23/20 15:01 Freq: Status: Active Protocol: Document 04/23/20 15:02 GIANNI (Rec: 04/23/20 16:23 GIANNI [email or web address]) Therapy Assessment Status Assessment Status Assessment Status Evaluation Outpatient Past Medical History Past Medical History Source of Past Medical History Patient,Recalled from Previous Visit, Confirmed with Patient /Family Neurological History Hx Other Neurological Disorders Yes: 2012 SM BRAIN BLEED PASSED OUT AT HOME.WENT TO [facility] ER Cardiovascular History Hx Hypercholesterolemia Yes Hx Hypertension Yes Respiratory History Hx Other Respiratory Disorders Yes: LT LUNG NODULE DX 2013. SEES DR OCHOA ONCE A YR Gastrointestinal History Hx Appendectomy Yes Hx Cholecystectomy Yes: 1987 Hx Gastroesophageal Reflux Disease Yes Hx Hernia Yes: 2017 UMBILICAL HERNIA REPAIR Hx Other Gastrointestinal Disorders Yes: ANEURYSM BY THE SPLEEN DX [address] SANYA JARA JUST WATCHING FOR NOW Genitourinary History Hx Other Genitourinary Disorders Yes: 2011 INTERSTIM PLACED FOR BOWEL CONTROL.HAS AN OVERACTIVE BLADDER Musculoskeletal History Hx Arthritis Yes: GENERALIZED Hx Joint Replacement Yes: 2016 LTKA, 2019 R TKA Hx Other Musculoskeletal Disorders Yes: OA RT KNEE Hematological History Hx Hematological Disorders No Significant History Endocrine History Hx Diabetes Yes Hx Hyperthyroidism Yes HEENT History Hx Sinus Problems Yes: ALLERGIES Integumentary History Hx Excision Skin Lesion Yes: 2015 [facility] REMOVED RT THIGH IN DR'S OFFICE Reproductive History Hx Hysterectomy Yes: 2000 Psychosocial History Hx Depression Yes Pain History History of Any Previous or Ongoing No Significant History Instance of Pain Anesthesia History Hx Anesthesia Reactions No Significant History Other History Hx Implanted Device Yes: INTERSTIM FOR BOWEL
--- NOTE | 2020-04-30 15:03 | PCPTNOTE ---
Patient called & cancelled scheduled appointment this date due to not feeling well.
--- NOTE | 2020-05-03 13:04 | PCPTNOTE ---
Patient called & cancelled scheduled appointment this date due to feeling ill. To go see MD today.
--- NOTE | 2020-05-19 15:35 | PTOPEVAL ---
PHYSICAL THERAPY DISCHARGE SUMMARY Thank you for referring Laura Elizondo to [facility].? Laura was seen x 7 visits. Goals have been met, ready for d/c from PT to HEP. I agree with Laura's discharge from physical therapy. Referring Physician Date Admitting Provider: Attending Provider: Ronan Gregory MD Referring Provider: *PT Outpatient Evaluation Start: 04/23/20 15:01 Freq: Status: Active Protocol: Document 05/19/20 14:30 GIANNI (Rec: 05/19/20 15:28 GIANNI [email or web address]) Therapy Assessment Status Assessment Status Assessment Status Discharge Evaluation Information Problem Subjective Information Sola reports that she has Query Text:As Reported By Patient/ begun to upgrade her activity Family level at home now. Pain Assessment Timing of Pain Assessment Timing of Pain Assessment Assessment Pain Scale Pain Scale Used Numeric (1 - 10) Self Report Pain Assessment Right Knee(s) Reported Pain Level 3 Lowest Pain Intensity 2 Greatest Pain Intensity 4 Pain Score Pain Score 3: Self Report Interventions Used Interventions Used By Clinicians Exercise,Ice Lower Extremity Range of Motion Knee Range of Motion Right Knee Flexion Range of Motion - Active 125 Knee Extension Range of Motion - Active 2 Query Text: Knee Range of Motion Limitations Edema,Soft Tissue Restriction Knee Range of Motion Comments sitting - 125 Lower Extremity Muscle Strength Testing Hip Strength Bilateral Hip Strength Comments Right hip - flexion 4+, abduction 4- extension 5 IR 5 ER 4+ Knee Strength Right Knee Flexion Strength 5 Normal Knee Extension Strength 5 Normal Palpation Assessment Palpation Palpation good patellar mobility, good incision mobility present Edema Assessment Location Right Knee(s) Edema Degree 1+ (2 mm or less) Balance Assessment Time Up Go (TUG) Assistive Devices None Comments 15.15 sec Gait Assessment Gait Pattern Assessment Other Gait Observations without deviation and without use of assistive device Stair Climbing Assessment Stair Climbing Assessment Stair Climbing Assistive Devices Railings Number of Steps Climbed (Steps) 4 Number of Repetitions (Repetitions) 1 Technique Alternating Steps Stair Climbing Direction Both Up and Down Stair Climbing Ability Independent PT Clinical Summary Clinical Summary Protocol: PTEVCODE PT Clinical Summary WOMAC pain score 25% physical function score 32%
== END 2020-05-31 11:33 | disposition home or self-care (01) ==
LOC: ANHHIPT 14:30
PROVIDERS: Visit Provider Orthopaedic Surgery
DX: Z47.1 Aftercare following joint replacement surgery (principal); Z96.651 Presence of right artificial knee joint
CPT/HCPCS: 97110; 97161

== ENCOUNTER 2020-10-18 09:00 | Outpatient (RCR) | payer MEDICARE, SELFPAY ==
--- NOTE | 2020-09-22 10:28 | PTOPEVAL ---
INITIAL PHYSICAL THERAPY EVALUATION and PLAN OF CARE Thank you for referring Laura Elizondo to [facility].? Laura is scheduled to be seen for physical therapy? 2x/week for 4 weeks. Please review, sign, date and return this plan of care SIXTO. I agree with and certify that the following plan of care is medically necessary. Referring Physician Date Admitting Provider: Attending Provider: Ronan Gregory MD Referring Provider: *PT Outpatient Evaluation Start: 09/22/20 09:18 Freq: Status: Active Protocol: Document 09/22/20 09:15 GIANNI (Rec: 09/22/20 10:28 GIANNI [email or web address]) Therapy Assessment Status Assessment Status Assessment Status Evaluation Outpatient Past Medical History Past Medical History Source of Past Medical History Recalled from Previous Visit, Confirmed with Patient/Family Neurological History Hx Other Neurological Disorders Yes: 2012 SM BRAIN BLEED PASSED OUT AT HOME.WENT TO [facility] ER Cardiovascular History Hx Hypercholesterolemia Yes Hx Hypertension Yes Hx Pacemaker Yes: 07/19/2020 Respiratory History Hx Other Respiratory Disorders Yes: LT LUNG NODULE DX 2013. SEES DR OCHOA ONCE A YR Gastrointestinal History Hx Appendectomy Yes Hx Cholecystectomy Yes: 1987 Hx Gastroesophageal Reflux Disease Yes Hx Hernia Yes: 2017 UMBILICAL HERNIA REPAIR Hx Other Gastrointestinal Disorders Yes: ANEURYSM BY THE SPLEEN DX [address] SANYA JARA JUST WATCHING FOR NOW Genitourinary History Hx Other Genitourinary Disorders Yes: 2011 INTERSTIM PLACED FOR BOWEL CONTROL.HAS AN OVERACTIVE BLADDER Musculoskeletal History Hx Arthritis Yes: GENERALIZED Hx Joint Replacement Yes: 2016 L TKA, 2019 R TKA Hx Other Musculoskeletal Disorders Yes: OA RT KNEE Hematological History Hx Hematological Disorders No Significant History Endocrine History Hx Diabetes Yes Hx Hyperthyroidism Yes HEENT History Hx Sinus Problems Yes: ALLERGIES Integumentary History Hx Excision Skin Lesion Yes: 2015 [facility] REMOVED RT THIGH IN DR'S OFFICE Reproductive History Hx Hysterectomy Yes: 2000 Psychosocial History Hx Depression Yes Pain History History of Any Previous or Ongoing No Significant History Instance of Pain Anesthesia History Hx Anesthesia Reactions No Significant History Other History Hx Implanted Device Yes: INTERSTIM FOR BOWEL
--- NOTE | 2020-10-18 15:01 | PTOPEVAL ---
PHYSICAL THERAPY DISCHARGE SUMMARY Thank you for referring Laura Elizondo to [facility].? Sola has been seen x 8 visits in PT. She has met all goals set and is ready for discharge from PT to [facility]. I agree with Sola's discharge from PT. Referring Physician Date Admitting Provider: Attending Provider: Ronan Gregory MD Referring Provider: Therapy Assessment Status Assessment Status Assessment Status Discharge Evaluation Information Problem Diagnosis R TKA Subjective Information Sola reports that she has no Query Text:As Reported By Patient/ difficulty going up stairs Family reciprocally. Hasn't been shopping much - but when she has no problems. No difficulty going to sports activities with grandkids. Pain Assessment Timing of Pain Assessment Timing of Pain Assessment Assessment Pain Scale Pain Scale Used Numeric (1 - 10) Self Report Pain Assessment Right Knee(s) Reported Pain Level 2 Lowest Pain Intensity 1 Greatest Pain Intensity 4 Pain Score Pain Score 2: Self Report Interventions Used Interventions Used By Clinicians Exercise Lower Extremity Muscle Strength Testing Hip Strength Right Hip Flexion Strength 4+ Good + Hip Extension Strength 5 Normal Hip Abduction Strength 4 Good Hip Medial Rotation Strength 5 Normal Hip Lateral Rotation Strength 5 Normal Knee Strength Right Knee Flexion Strength 5 Normal Knee Extension Strength 5 Normal Balance Assessment Time Up Go (TUG) Timed Up and Go Test (TUG) (Seconds) 11 Assistive Devices None 5 Time Sit to Stand Time in Seconds 17.50 5 Time Sit to Stand Comments hands crossed over chest Query Text:Normative Data: If Greater Than 15 Seconds, 74% Increase Risk for Recurrent Falls PT Clinical Summary Clinical Summary Protocol: PTEVCODE PT Clinical Summary WOMAC pain score 15% disability score 13% total score 15% Sola has done well in PT. She has regained R hip and knee strength, decreased pain levels, improved TUG and 5 sit to stand scores and upgraded functional abilities. Goals have been met. She is ready to be d/c'ed from PT to [facility].
== END 2020-10-28 10:58 | disposition home or self-care (01) ==
LOC: ANHHIPT 09:00
PROVIDERS: Visit Provider Orthopaedic Surgery
DX: Z47.1 Aftercare following joint replacement surgery (principal); Z96.651 Presence of right artificial knee joint
CPT/HCPCS: 97014; 97110; 97161; G0283